=== PATIENT | male | born 1965 | race Caucasian/White ===

== ENCOUNTER 2018-01-27 13:36 | Emergency (ER) | payer OTHER ==
--- NOTE | 2018-01-27 14:21 | EDM.PDOC ---
ED HPI GENERAL MEDICAL PROBLEM - General Chief Complaint: Upper Extremity Injury/Pain Stated Complaint: LT ARM HURTS Time Seen by Provider: 01/27/18 14:00 Source of Information: Reports: Patient History Limitations: Reports: No Limitations - History of Present Illness INITIAL COMMENTS - FREE TEXT/NARRATIVE: HISTORY AND PHYSICAL: History of present illness: 52-year-old male presenting to emergency department with chief complaint of left shoulder and elbow pain 2 months. Patient states that for the past 2 months he's had intermittent episodes of left shoulder as well as left elbow pain. States the pain is worse with repetitive movement and while he is driving, using his left arm. Pain seems to be intermittent and is improved with Advil or Aleve. Denies any decreased strength, sensation. States that he does fish quite often, as well as [place] with that arm. Currently denies any chest pain, palpitations, shortest breath, syncopal episodes, or focal neurologic deficits. Denies any significant trauma to that area. Physical exam is significant for tenderness along the lateral epicondyle as well as anterior surface of the shoulder with positive Don[place]ue. Review of systems: As per history of present illness and below otherwise all systems reviewed and negative. Past medical history: As per history of present illness and as reviewed below otherwise noncontributory. Surgical history: As per history of present illness and as reviewed below otherwise noncontributory. Social history: No reported history of drug or alcohol abuse. Family history: As per history of present illness and as reviewed below otherwise noncontributory. Physical exam: HEENT: Atraumatic, normocephalic, pupils reactive, negative for conjunctival pallor or scleral icterus, mucous membranes moist, throat clear, neck supple, nontender, trachea midline. Lungs: Clear to auscultation, breath sounds equal bilaterally, chest nontender. Heart: S1S2, regular, negative for clicks, rubs, or JVD. Abdomen: Soft, nondistended, nontender. Negative for masses or hepatosplenomegaly. Negative for costovertebral tenderness. Pelvis: Stable nontender. Genitourinary: Deferred. Rectal: Deferred. Extremities: See above Atraumatic, negative for cords or calf pain. Neurovascular unremarkable. Neuro: Awake, alert, oriented. Cranial nerves II through XII unremarkable. Cerebellum unremarkable. Motor and sensory unremarkable throughout. Exam nonfocal. Diagnostics: [] Therapeutics: Meloxicam 15 mg by mouth daily Impression: Lateral epicondylitis, left arm Left shoulder impingement syndrome Plan: Patient exam significant for symptoms suggestive of lateral epicondylitis as well as mild left shoulder impingement syndrome. Spent considerable amount of time talking with patient about treatment options. Will give him meloxicam 15 mg by mouth daily 10 days. Instructed him to rest, ice, use a compression type of device and elevate extremity. If his symptoms persist. He most likely will need to be seen by orthopedic surgery. I did talk to him about this and told him to follow-up with his primary care provider. Return to emergency department if any new or worsening symptoms. left arm Pain Score (Numeric/FACES): 5 - Related Data Allergies Allergy/AdvReac Type Severity Reaction Status Date / Time No Known Allergies Allergy Verified 01/27/18 13:45 Home Meds: Home Meds Dapagliflozin/Metformin HCl [Xigduo Xr 5 mg-1,000 mg Tablet] 1 each PO DAILY [History] Fenofibrate Nanocrystallized [Fenofibrate] 48 mg PO DAILY 01/27/18 [History] atorvaSTATin [Lipitor] 20 mg PO BEDTIME 01/27/18 [History] Past Medical History Cardiovascular History: Reports: High Cholesterol Endocrine/Metabolic History: Reports: Diabetes, Type II - Past Surgical History Musculoskeletal Surgical History: Reports: Other (See Below) Other Musculoskeletal Surgeries/Procedures:: pencil removed from left arm. Social & Family History - Family History Family Medical History: Noncontributory - Tobacco Use Smoking Status *Q: Never Smoker - Recreational Drug Use Recreational Drug Use: No Review of Systems - Review of Systems Review Of Systems: ROS reveals no pertinent complaints other than HPI. ED EXAM, GENERAL - Physical Exam Exam: See Below Course - Vital Signs Last Recorded V/S: Last Vital Signs Temp 96.4 F 01/27/18 13:48 Pulse 83 01/27/18 13:48 Resp 18 01/27/18 13:48 BP 121/83 01/27/18 13:48 Pulse Ox 97 01/27/18 13:48 Departure - Departure Time of Disposition: 14:21 Disposition: Home, Self-Care 01 Condition: Good Clinical Impression: Lateral epicondylitis of left elbow, Impingement syndrome, shoulder, left - Discharge Information Referrals: PCP,None [Primary Care Provider] - Additional Instructions: My general discharge The following information is given to patients seen in the emergency department who are being discharged to home. This information is to outline your options for follow-up care. We provide all patients seen in our emergency department with a follow-up referral. The need for follow-up, as well as the timing and circumstances, are variable depending upon the specifics of your emergency department visit. If you don't have a primary care physician on staff, we will provide you with a referral. We always advise you to contact your personal physician following an emergency department visit to inform them of the circumstance of the visit and for follow-up with them and/or the need for any referrals to a consulting specialist. The emergency department will also refer you to a specialist when appropriate. This referral assures that you have the opportunity for follow-up care with a specialist. All of these measure are taken in an effort to provide you with optimal care, which includes your follow-up. Under all circumstances we always encourage you to contact your private physician who remains a resource for coordinating your care. When calling for follow-up care, please make the office aware that this follow-up is from your recent emergency room visit. If for any reason you are refused follow-up, please contact the [facility] Emergency Department at and asked to speak to the emergency department charge nurse. [address] [id number] Technique medication as prescribed. Follow-up with primary care. Can use ice, rest, elevation and a compression device. If continued pain may eventually need orthopedic consultation. Return emergency department if any new or worsening symptoms.
== END 2018-01-27 14:33 | disposition home or self-care (01) ==
LOC: MW.ED 13:36
DX: M77.12 Lateral epicondylitis, left elbow (principal); M75.42 Impingement syndrome of left shoulder; E11.9 Type 2 diabetes mellitus without complications; E78.00 Pure hypercholesterolemia, unspecified; Z79.899 Other long term (current) drug therapy
CPT/HCPCS: 99283

== ENCOUNTER 2022-01-22 23:54 | Emergency (ER) | payer OTHER ==
[2022-01-22] MEDS ORDERED: Lidocaine 2% Viscous Solution 15 ML UD PO ONE (23:58)
[2022-01-22] MEDS ORDERED: Ketorolac 30 MG/ML SDV IM ONE (23:58)
[2022-01-22] MEDS ORDERED: Amoxicillin/Clavulanate K 875-125 MG Tab PO ONE (23:59)
[2022-01-23] MEDS ORDERED: Acetaminophen/HYDROcodone 325-5 MG Tab PO ONE (00:04)
== END 2022-01-23 00:39 | disposition home or self-care (01) ==
LOC: MW.ED 23:54
DX: G89.18 Other acute postprocedural pain (principal); K91.89 Other postprocedural complications and disorders of digestive system; E78.00 Pure hypercholesterolemia, unspecified; E11.9 Type 2 diabetes mellitus without complications; Z79.82 Long term (current) use of aspirin; Z79.899 Other long term (current) drug therapy
CPT/HCPCS: 96372; 99282; A9270; J1885